=== PATIENT | female | born 1945 | race Hispanic/Latino ===

== ENCOUNTER 2020-10-17 11:46 | Emergency (ER) | payer MEDICARE, OTHER ==
[~2020-10-17] VITALS: Ht 157.5 cm; Wt 62.1 kg
[~2020-10-17 11:46] MED LIST: CLONAZEPAM0.5 MG PO; CORDARONE200 MG PO
[2020-10-17] MEDS ORDERED: KETOROLAC TROMETHAMINE 30 MG/ML VIAL IV ONE (12:36)
[2020-10-17] MEDS ORDERED: ACETAMINOPHEN 325 MG TAB PO ONE (12:45)
[2020-10-17 13:20] LABS: BASOPHILS % 0.6 % (0.0-1.0); EOSINOPHILS # (AUTO) 0.1 (0.0-0.4); EOSINOPHILS % 2.4 % (0.0-6.0); HEMATOCRIT 36.1 % (34.2-44.1); LYMPHOCYTES # (AUTO) 1.3 (1.0-3.2); LYMPHOCYTES % 23.7 % (18.0-39.1); MEAN CORPUSCULAR HEMOGLOBIN 29.8 pg (28-32); MEAN CORPUSCULAR HGB CONC 33.2 g/dL (31-35); MEAN CORPUSCULAR VOLUME 89.6 fL (81-99); MONOCYTES # (AUTO) 0.5 (0.2-0.8); MONOCYTES % 8.5 % (4.4-11.3); NEUTROPHILS # (AUTO) 3.5 (2.1-6.9); NEUTROPHILS % 64.4 % (38.7-80.0); PLATELET COUNT 160 x10e3/uL (140-360); RED BLOOD COUNT 4.03 x10e6/uL (3.6-5.1); RED CELL DISTRIBUTION WIDTH 13.2 % (11.7-14.4)
[2020-10-17 13:40] LABS: ALANINE AMINOTRANSFERASE 17 IU/L (0-55); ALBUMIN 3.7 g/dL (3.5-5.0); ALBUMIN/GLOBULIN RATIO 0.9 (0.8-2.0); ALKALINE PHOSPHATASE 87 IU/L (40-150); ANION GAP 16.5 mmol/L (8-16); BLOOD UREA NITROGEN 18 mg/dL (7-26); BUN/CREATININE RATIO 22 (6-25); CALCIUM 8.7 mg/dL (8.4-10.2); CARBON DIOXIDE 22 mmol/L (22-29); CHLORIDE 106 mmol/L (98-107); CREATINE KINASE 113 IU/L (29-168); CREATININE, SERUM 0.83 mg/dL (0.57-1.11); EST GLOMERULAR FILTRATION RATE > 60 ML/MIN (60-); GLUCOSE 252 mg/dL (74-118); POTASSIUM 4.5 mmol/L (3.5-5.1); SODIUM 140 mmol/L (136-145)
[2020-10-17] MEDS ORDERED: LIDOPATCH1 EACH TOP (14:42)
== END 2020-10-17 14:56 | disposition home or self-care (01) ==
LOC: ER 12:36
DX: M54.9 Dorsalgia, unspecified (principal); G89.29 Other chronic pain; E11.65 Type 2 diabetes mellitus with hyperglycemia; I10 Essential (primary) hypertension; I25.10 Atherosclerotic heart disease of native coronary artery without angina pectoris; E78.5 Hyperlipidemia, unspecified; Z95.810 Presence of automatic (implantable) cardiac defibrillator; R94.31 Abnormal electrocardiogram [ECG] [EKG]
CPT/HCPCS: 36415; 71046; 80053; 82550; 82553; 83880; 84484; 85025; 93005; 99283; J1885

== ENCOUNTER 2021-03-15 21:26 | Emergency (ER) | payer OTHER ==
[~2021-03-15] VITALS: Ht 157.5 cm; Wt 62.1 kg
[~2021-03-15 21:26] MED LIST changes: +LIDOPATCH1 EACH TOP
[2021-03-15 22:10] LABS: BASOPHILS % 0.4 % (0.0-1.0); EOSINOPHILS # (AUTO) 0.2 (0.0-0.4); EOSINOPHILS % 1.9 % (0.0-6.0); HEMATOCRIT 42.2 % (34.2-44.1); HEMOGLOBIN 13.7 g/dL (12.0-16.0); LYMPHOCYTES # (AUTO) 1.5 (1.0-3.2); LYMPHOCYTES % 15.5 % (18.0-39.1); MEAN CORPUSCULAR HEMOGLOBIN 28.7 pg (28-32); MEAN CORPUSCULAR HGB CONC 32.5 g/dL (31-35); MEAN CORPUSCULAR VOLUME 88.5 fL (81-99); MONOCYTES # (AUTO) 0.7 (0.2-0.8); MONOCYTES % 7.3 % (4.4-11.3); NEUTROPHILS # (AUTO) 7.2 (2.1-6.9); NEUTROPHILS % 74.6 % (38.7-80.0); PLATELET COUNT 193 x10e3/uL (140-360); RED BLOOD COUNT 4.77 x10e6/uL (3.6-5.1); RED CELL DISTRIBUTION WIDTH 14.7 % (11.7-14.4)
[2021-03-15 22:29] LABS: ALBUMIN 4.2 g/dL (3.5-5.0); ALBUMIN/GLOBULIN RATIO 0.9 (0.8-2.0); ANION GAP 22.6 mmol/L (8-16); CALCIUM 9.5 mg/dL (8.4-10.2); CREATININE, SERUM 1.06 mg/dL (0.57-1.11)
[2021-03-15 22:30] LABS: POTASSIUM 5.6 mmol/L (3.5-5.1)
[2021-03-15 23:49] LABS: ANION GAP 16.1 mmol/L (8-16); CALCIUM 7.7 mg/dL (8.4-10.2); CREATININE, SERUM 0.78 mg/dL (0.57-1.11); POTASSIUM 4.1 mmol/L (3.5-5.1)
== END 2021-03-16 00:05 | disposition home or self-care (01) ==
LOC: ER 21:33
DX: R00.2 Palpitations (principal); R94.31 Abnormal electrocardiogram [ECG] [EKG]; E11.65 Type 2 diabetes mellitus with hyperglycemia; I10 Essential (primary) hypertension; E78.5 Hyperlipidemia, unspecified; Z95.810 Presence of automatic (implantable) cardiac defibrillator; I25.2 Old myocardial infarction; M54.9 Dorsalgia, unspecified; G89.29 Other chronic pain
CPT/HCPCS: 36415; 71045; 80048; 80053; 83880; 84484; 85025; 93005; 99284

== ENCOUNTER 2021-04-18 12:21 | Inpatient (IN) | payer OTHER ==
[~2021-04-18] VITALS: Ht 157.5 cm; Wt 50.8 kg
[2021-04-18] MEDS ORDERED: ASPIRIN 81 MG CHEW TAB PO ONE ×2 (12:30→14:00)
[2021-04-18 12:58] LABS: BASOPHILS % 0.4 % (0.0-1.0); EOSINOPHILS # (AUTO) 0.3 (0.0-0.4); EOSINOPHILS % 4.5 % (0.0-6.0); HEMATOCRIT 38.6 % (34.2-44.1); HEMOGLOBIN 12.5 g/dL (12.0-16.0); LYMPHOCYTES # (AUTO) 1.1 (1.0-3.2); LYMPHOCYTES % 16.4 % (18.0-39.1); MEAN CORPUSCULAR HEMOGLOBIN 29.4 pg (28-32); MEAN CORPUSCULAR HGB CONC 32.4 g/dL (31-35); MEAN CORPUSCULAR VOLUME 90.8 fL (81-99); MONOCYTES # (AUTO) 0.6 (0.2-0.8); MONOCYTES % 8.6 % (4.4-11.3); NEUTROPHILS # (AUTO) 4.7 (2.1-6.9); PLATELET COUNT 180 x10e3/uL (140-360); RED BLOOD COUNT 4.25 x10e6/uL (3.6-5.1); RED CELL DISTRIBUTION WIDTH 14.2 % (11.7-14.4)
[2021-04-18 13:10] LABS: INR 0.94; PROTHROMBIN TIME 13.3 seconds (11.9-14.5)
[2021-04-18 13:11] LABS: PARTIAL THROMBOPLASTIN TIME 24.2 seconds (23.8-35.5)
[2021-04-18 13:19] LABS: ALBUMIN 3.8 g/dL (3.5-5.0); ALBUMIN/GLOBULIN RATIO 0.9 (0.8-2.0); CALCIUM 8.6 mg/dL (8.4-10.2); CREATININE, SERUM 0.9 mg/dL (0.57-1.11); MAGNESIUM 1.7 MG/DL (1.3-2.1)
[2021-04-18 13:26] LABS: CREATINE KINASE MB 1.8 ng/mL (0-5.0)
[2021-04-18] MEDS ORDERED: SODIUM CHLORIDE FLUSH 10 ML SYR INJ PRN (14:00)
[2021-04-18] MEDS ORDERED: Morphine 2mg Syringe 2 MG/ML SYR IV PRN (14:00)
[2021-04-18] MEDS ORDERED: ONDANSETRON HCL INJ 2MG/ML 2ML 2 MG/ML VIAL IV PRN (14:00)
[2021-04-18] MEDS: FAMOTIDINE 20 MG TAB PO SCH ×2 (14:30→21:08)
[2021-04-18] MEDS ORDERED: AMIODARONE HCL 150 MG/100 ML BAG IV ONE (15:00)
[2021-04-18] MEDS ORDERED: AMIODARONE HCL 150MG 100 ML ONE (15:12)
[2021-04-18] MEDS ORDERED: AMIODARONE HCL 100 ML IV ONE (15:30)
[2021-04-18] MEDS ORDERED: AMIODARONE 900MG 500 ML IV SCH (15:30)
[2021-04-18 17:00] VITALS: BP 108/96
[2021-04-18 17:27] VITALS: BP 108/96
[2021-04-18 17:46] VITALS: BP 108/96
[2021-04-18] MEDS ORDERED: LEVOTHYROXINE50 MCG PO (18:42)
[2021-04-18] MEDS ORDERED: GLIMEPIRIDE2 MG PO (18:42)
[2021-04-18] MEDS ORDERED: LISINOPRIL10 MG PO (18:43)
[2021-04-18] MEDS ORDERED: FUROSEMIDE40 MG PO (18:43)
[2021-04-18] MEDS ORDERED: ATORVASTATIN CA20 MG PO (18:43)
[2021-04-18] MEDS ORDERED: METOPROLOL TART50 MG PO (18:43)
[2021-04-18 20:05] VITALS: BP 113/67
[2021-04-18 20:26] VITALS: BP 113/67
[2021-04-18] MEDS: AMIODARONE 900MG 500 ML IV SCH ×2 (20:53→21:45)
[2021-04-18] MEDS: SIMVASTATIN 20 MG TAB PO SCH (21:09)
[2021-04-18 22:06] LABS: CREATINE KINASE MB 1.8 ng/mL (0-5.0)
[2021-04-18] MEDS ORDERED: MAGNESIUM SULFATE 2GM/50ML 50 ML IV ONE (22:45)
[2021-04-19] VITALS (8 sets, daily range): BP systolic 107–127; BP diastolic 77–94
[2021-04-19 04:57] LABS: BASOPHILS % 0.4 % (0.0-1.0); EOSINOPHILS # (AUTO) 0.1 (0.0-0.4); EOSINOPHILS % 0.7 % (0.0-6.0); HEMATOCRIT 36.2 % (34.2-44.1); HEMOGLOBIN 12.1 g/dL (12.0-16.0); LYMPHOCYTES # (AUTO) 0.7 (1.0-3.2); LYMPHOCYTES % 6.6 % (18.0-39.1); MEAN CORPUSCULAR HEMOGLOBIN 29.2 pg (28-32); MEAN CORPUSCULAR HGB CONC 33.4 g/dL (31-35); MEAN CORPUSCULAR VOLUME 87.4 fL (81-99); MONOCYTES # (AUTO) 0.7 (0.2-0.8); MONOCYTES % 6.2 % (4.4-11.3); NEUTROPHILS # (AUTO) 9.4 (2.1-6.9); NEUTROPHILS % 85.4 % (38.7-80.0); PLATELET COUNT 186 x10e3/uL (140-360); RED BLOOD COUNT 4.14 x10e6/uL (3.6-5.1); RED CELL DISTRIBUTION WIDTH 14.2 % (11.7-14.4)
[2021-04-19 05:18] LABS: ALBUMIN 3.4 g/dL (3.5-5.0); ALBUMIN/GLOBULIN RATIO 0.9 (0.8-2.0); CHOL/HDL RATIO 4.1 (3.0-3.6); CREATININE, SERUM 0.97 mg/dL (0.57-1.11)
[2021-04-19] MEDS: FAMOTIDINE 20 MG TAB PO SCH ×2 (10:38→21:20)
[2021-04-19] MEDS: ASPIRIN 81 MG ENTERIC COATED PO SCH (10:38)
[2021-04-19] MEDS: FUROSEMIDE INJ 10 MG/ML 4 ML VIAL IV SCH ×2 (12:12→19:20)
[2021-04-19 12:39] LABS: FREE THYROXINE INDEX 1.785 (1.4-3.8); THYROID STIMULATING HORMONE 3.075 uIU/mL (0.350-4.940)
[2021-04-19] MEDS ORDERED: MIDAZOLAM HCL 2 MG/2 ML VIAL ONE (13:56)
[2021-04-19] MEDS ORDERED: VERAPAMIL HCL 2.5 MG/ML 2 ML VIAL ONE (13:56)
[2021-04-19] MEDS ORDERED: LIDOCAINE HCL 2% LOCAL 20 ML VIAL ONE (13:57)
[2021-04-19] MEDS ORDERED: FENTANYL CITRATE/PF 100MCG/2 ML INJ ONE (13:57)
[2021-04-19] MEDS ORDERED: IOPAMIDOL 370 MG/ML 200 ML INFUS..BTL INJ ONE (13:58)
[2021-04-19] MEDS ORDERED: SODIUM CHLORIDE 0.9% 1000ML 0 ML ONE (13:58)
[2021-04-19] MEDS ORDERED: HEPARIN SOD/SOD CHLORIDE 0 ML ONE (13:58)
[2021-04-19] MEDS: AMIODARONE HCL 200 MG TAB PO SCH (19:20)
[2021-04-19] MEDS: SIMVASTATIN 20 MG TAB PO SCH (21:20)
[2021-04-20] VITALS (8 sets, daily range): BP systolic 113–146; BP diastolic 67–103
[2021-04-20] MEDS: FUROSEMIDE INJ 10 MG/ML 4 ML VIAL IV SCH ×2 (07:44→18:16)
[2021-04-20] MEDS: ASPIRIN 81 MG ENTERIC COATED PO SCH (07:45)
[2021-04-20] MEDS: FAMOTIDINE 20 MG TAB PO SCH ×2 (07:45→21:25)
[2021-04-20] MEDS: AMIODARONE HCL 200 MG TAB PO SCH ×2 (07:45→18:16)
[2021-04-20] MEDS ORDERED: MIDAZOLAM HCL 2 MG/2 ML VIAL ONE (12:26)
[2021-04-20] MEDS ORDERED: HEPARIN SOD/SOD CHLORIDE 2,000 ML ONE (12:27)
[2021-04-20] MEDS ORDERED: SODIUM CHLORIDE 0.9% 1000ML 1,000 ML ONE (12:27)
[2021-04-20] MEDS ORDERED: IOPAMIDOL 370 MG/ML 200 ML INFUS..BTL INJ ONE (12:27)
[2021-04-20] MEDS ORDERED: FENTANYL CITRATE/PF 100MCG/2 ML INJ ONE (12:27)
[2021-04-20] MEDS ORDERED: LIDOCAINE HCL 2% LOCAL 20 ML VIAL ONE (12:27)
[2021-04-20] MEDS: SIMVASTATIN 20 MG TAB PO SCH (21:25)
[2021-04-21] VITALS (8 sets, daily range): BP systolic 101–149; BP diastolic 58–93
[2021-04-21] MEDS: AMIODARONE HCL 200 MG TAB PO SCH ×2 (08:35→17:33)
[2021-04-21] MEDS: ASPIRIN 81 MG ENTERIC COATED PO SCH (08:35)
[2021-04-21] MEDS: FAMOTIDINE 20 MG TAB PO SCH ×2 (08:35→21:50)
[2021-04-21] MEDS: FUROSEMIDE INJ 10 MG/ML 4 ML VIAL IV SCH ×2 (08:35→17:33)
[2021-04-21] MEDS ORDERED: METOPROLOL SUCCINATE 25 MG TAB XL PO SCH (09:00)
[2021-04-21] MEDS: METOPROLOL SUCCINATE 25 MG TAB XL PO SCH ×2 (17:33→21:00)
[2021-04-21] MEDS: SIMVASTATIN 20 MG TAB PO SCH (21:50)
[2021-04-22] VITALS (8 sets, daily range): BP systolic 107–128; BP diastolic 64–94
[2021-04-22] MEDS: FAMOTIDINE 20 MG TAB PO SCH (09:00)
[2021-04-22] MEDS: ASPIRIN 81 MG ENTERIC COATED PO SCH (09:00)
[2021-04-22] MEDS: METOPROLOL SUCCINATE 25 MG TAB XL PO SCH (09:00)
[2021-04-22] MEDS: AMIODARONE HCL 200 MG TAB PO SCH (09:00)
[2021-04-22] MEDS: FUROSEMIDE INJ 10 MG/ML 4 ML VIAL IV SCH (09:00)
[2021-04-22] MEDS ORDERED: AMIODARONE HCL200 MG PO (10:21)
[2021-04-22] MEDS ORDERED: AMIODARONE HCL400 MG PO (16:28)
[2021-04-22] MEDS ORDERED: LISINOPRIL10 MG PO (16:28)
[2021-04-22] MEDS ORDERED: METOPROLOL SUCC50 MG PO (16:29)
== END 2021-04-22 17:30 | disposition home or self-care (01) | DRG 286 ==
LOC: ER 12:32 → ERHOLD 13:51 → IMCU 16:54
PROVIDERS: ADMIT Internal Medicine; ATTEND Internal Medicine
PROC: 4A023N7 Measurement of Cardiac Sampling and Pressure, Left Heart, Percutaneous Approach (ICD-10-PCS; principal; 2021-04-20)
PROC: B2111ZZ Fluoroscopy of Multiple Coronary Arteries using Low Osmolar Contrast (ICD-10-PCS; 2021-04-20)
PROC: B2151ZZ Fluoroscopy of Left Heart using Low Osmolar Contrast (ICD-10-PCS; 2021-04-20)
DX: I47.2 Ventricular tachycardia (principal); I50.23 Acute on chronic systolic (congestive) heart failure; I42.8 Other cardiomyopathies; I25.10 Atherosclerotic heart disease of native coronary artery without angina pectoris; E78.5 Hyperlipidemia, unspecified; E03.9 Hypothyroidism, unspecified; I11.0 Hypertensive heart disease with heart failure; E11.65 Type 2 diabetes mellitus with hyperglycemia; Z95.810 Presence of automatic (implantable) cardiac defibrillator; I25.2 Old myocardial infarction; Z20.822 Contact with and (suspected) exposure to COVID-19
CPT/HCPCS: 36415; 71045; 80053; 80061; 82550; 82553; 82607; 83735; 83880; 84436; 84443; 84479; 84484; 85025; 85610; 85730; 93005; 93306; 93458; 96361; 99152; 99284; C1760; C1769; C1887; J1940; J2001; J2250; J2405; J3010; J3475; J7030; Q9967; U0002